=== PATIENT | female | born 1955 | race Caucasian/White ===

== ENCOUNTER → 2016-06-14 | Outpatient (CLI) | payer BC ==
[~2016-06-14] MED LIST: OMEG10007 PO; OXYC-57 PO; ZLF/100 PO
--- NOTE | 2016-06-14 16:38 | MAMMOGRAPHY REPORT ---
BILATERAL DIGITAL SCREENING MAMMOGRAM WITH CAD: 06/14/2016 CLINICAL HISTORY: Routine screening. Patient has no complaints. TECHNIQUE: Bilateral CC, MLO and left XCCM views were obtained. Current study was also evaluated w ith a Computer Aided Detection (CAD) system. COMPARISON: Comparison is made to exams dated: 06/09/2015 mammogram, 06/06/2014 mammogram, 05/09/2013 mammogram, 08/17/2012 ultrasound, 08/17/2012 mammogram, and 05/08/2012 mammogram - [facility]. BREAST COMPOSITION: The tissue of both breasts is heterogeneously dense, which may obscure small ma sses. FINDINGS: There a few punctate benign-appearing microcalcifications in the right breast. No new jayson picious mass, architectural distortion or cluster of microcalcifications is seen. IMPRESSION: ACR BI-RADS CATEGORY 2: BENIGN There is no mammographic evidence of malignancy. A 1 year screening mammogram is recommended. The p atient will receive written notification of the results. Approximately 10% of breast cancers are not detected with mammography. A negative mammographic repor t should not delay biopsy if a clinically suggestive mass is present. Nasima Lovett M.D. ay/:06/14/2016 16:16:21 Airline Stewardess: Christina Garner, [facility] letter sent: Normal 1/2 BI-RADS Code: ACR BI-RADS Category 2: Benign
== END | disposition home or self-care (01) ==
LOC: C.MAMM 07:15
PROVIDERS: ATTEND Family Medicine
DX: Z12.31 Encounter for screening mammogram for malignant neoplasm of breast (principal)

== ENCOUNTER 2016-07-31 13:12 | Emergency (ER) | payer BC ==
[~2016-07-31] VITALS: Ht 165.1 cm; Wt 72.0 kg
[2016-07-31 13:23] VITALS: Ht 165.1 cm; Wt 72.0 kg
[2016-07-31] MEDS ORDERED: ACETAMINOPHEN 325 MG TAB PO STA (13:37)
--- NOTE | 2016-07-31 14:28 | DIAGNOSTIC IMAGING REPORT ---
RIGHT ANKLE MIN 3 VIEWS ROUTINE CLINICAL HISTORY: R ankle pain Right pain COMPARISON: None. DISCUSSION: The bones and joint spaces appear intact. There is no evidence of fracture, dislocation or bony disease. There is no evidence for soft tissue swelling. IMPRESSION: Negative study. Electronically signed by: Bhavesh Moran M.D. 07/31/2016 2:27 PM Dictated Date/Time: 07/31/2016 2:27 PM
[2016-07-31 14:45] VITALS: BP 124/74; PULSE 72; TEMP 36.7; O2SAT 95
--- NOTE | 2016-07-31 20:28 | EMERGENCY ROOM VISIT NOTE ---
ED Visit Note First contact with patient: 13:30 Chief Complaint: Right ankle pain. History of Present Illness: Ms. Burgess is a 61-year-old white female is brought into the ED via wheelchair complaining of right lateral ankle pain. Patient reports approximately one hour ago she was walking down her steps into the basement and when she hit the last step she rolled her ankle and since that time she has been having moderate to severe pain over the lateral aspect of the right ankle. Currently she describes her pain as a combination of throbbing and sharp. She rates her discomfort 5/10. Her pain is nonradiating. Her pain worsens with palpation, ambulation, inversion and plantarflexion. She has not identified any alleviating factors related to the pain. She has not taken any medications for pain prior to arrival at the hospital. She denies any associated symptoms including hip pain, knee pain, lower leg pain, leg weakness/numbness/tingling. Additionally she denies any previous significant injuries or surgeries to the ankle or foot. Review of Systems: As noted above in history of present illness. Past Medical History: Shoulder adhesive capsulitis, status post appendectomy. Current Medications: Sertraline. Allergies to Medications: Patient denies. Social History: Patient feels safe in her home environment; she denies tobacco and alcohol use. Physical Examination: Vital Signs: Date Time Temp Pulse Resp B/P Pulse Ox O2 Delivery O2 Flow Rate FiO2 07/31/16 14:45 36.7 72 16 124/74 95 07/31/16 13:23 36.7 74 15 127/76 96 Room Air GENERAL: 61-year-old female in moderate distress due to pain, nontoxic-appearing , afebrile and hemodynamically stable. NEUROLOGICAL: Awake, alert and oriented to person, place and time. Answering questions appropriately and following commands. SKIN: Warm, dry and pink. No soft tissue eruptions or trauma noted. RIGHT LOWER EXTREMITY: No gross bony deformity. No shortening or malrotation. No tenderness in the hip, knee or lower leg. Moderate tenderness over the ligamentous structures anterior and posterior to the lateral malleolus with mild swelling but no bony deformity or crepitus. Decreased range of motion due to pain. I do not appreciate any ligamentous laxity. Throughout the foot the skin was warm and pink and capillary refill is brisk. She is able to distinguish light sensations through all dermatomes. ED Course: Patient is assessed as noted above. Patient was given ice and 650 mg of acetaminophen by mouth for pain. Right Ankle X-Rays: Were read by myself and the radiologist showing no acute fractures or dislocations. Patient was placed in a gel splint and because of her shoulder issues she was instructed on Walker use. Patient was educated about today's findings and instructed on her treatment plan ; she verbalizes understanding and agreement with this plan. Clinical Impression: Right ankle sprain. Disposition: Patient discharged home in stable condition; prior to departure she subjectively reported she was feeling better and rated her discomfort 2/10. Plan: Comfort measures were discussed with the patient including rest, ice, elevation , use of acetaminophen and the use of splint and walker. Patient was encouraged to follow-up with orthopedics if no better in 5-6 days. Patient was encouraged return the ED for worsening/uncontrolled pain, uncontrolled swelling, foot weakness/numbness/tingling or any new/concerning symptoms.
== END 2016-07-31 14:50 | disposition home or self-care (01) ==
LOC: C.EDB 13:13 → C.EDD 14:50
DX: S93.401A Sprain of unspecified ligament of right ankle, initial encounter (principal); X50.9XXA Other and unspecified overexertion or strenuous movements or postures, initial encounter